=== PATIENT | male | born 1955 | race Caucasian/White ===

== ENCOUNTER → 2017-01-24 | Outpatient (CLI) | payer MEDICARE, OTHER | LOC: MRI 12:01 | DX: M51.37 Other intervertebral disc degeneration, lumbosacral region (principal); M51.36 Other intervertebral disc degeneration, lumbar region; M48.06 Spinal stenosis, lumbar region; M48.07 Spinal stenosis, lumbosacral region; M43.16 Spondylolisthesis, lumbar region; M51.26 Other intervertebral disc displacement, lumbar region | CPT/HCPCS: 72148 ==

== ENCOUNTER 2017-02-13 13:23 | Emergency (ER) | payer MEDICARE | END 2017-02-13 15:00 | disposition left against medical advice (07) | LOC: ER1 13:23 | DX: R07.9 Chest pain, unspecified (principal); Z53.21 Procedure and treatment not carried out due to patient leaving prior to being seen by health care provider | CPT/HCPCS: 93005 ==

== ENCOUNTER → 2021-03-19 | Outpatient (CLI) | payer MEDICARE, SELFPAY ==
[~2021-03-19] MED LIST: ASPIRIN EC81 MG PO; CELEXA40 MG PO; DESYREL 50 MG T50 MG PO; ISORDIL TAB 3030 MG PO; PROSCAR 5 MG TAB5 MG PO; SYNTHROID25 MCG PO; ZESTRIL10 MG PO; ZOCOR20 MG PO
== END ==
LOC: RAD 09:29
DX: M79.641 Pain in right hand (principal); M79.642 Pain in left hand; M19.042 Primary osteoarthritis, left hand; M19.041 Primary osteoarthritis, right hand; M19.032 Primary osteoarthritis, left wrist; M19.031 Primary osteoarthritis, right wrist
CPT/HCPCS: 73100; 73120

== ENCOUNTER → 2021-04-04 | Outpatient (CLI) | payer MEDICARE, SELFPAY | LOC: KOH-I 14:36 | DX: M79.642 Pain in left hand (principal); M25.532 Pain in left wrist | CPT/HCPCS: 73221 ==

== ENCOUNTER → 2021-07-19 | Outpatient (CLI) | payer MEDICARE | LOC: EXRD 11:35 | DX: M25.511 Pain in right shoulder (principal) | CPT/HCPCS: 73030 ==

== ENCOUNTER 2021-10-20 13:47 | Observation (INO) | payer MEDICARE, OTHER ==
[~2021-10-20] VITALS: Ht 172.7 cm; Wt 88.5 kg
[2021-10-20 14:49] LABS: HEMOGLOBIN 15.7 gm/dl (14.0-17.5); RED BLOOD COUNT 5.1 M/UL (4.20-5.50); WHITE BLOOD COUNT 4.6 K/UL (4.5-11.0)
[2021-10-20 15:08] LABS: BUN/CREATININE RATIO 25 (0-10)
[2021-10-20] MEDS ORDERED: ROPINIROLE HCL0.5 MG PO (18:48)
[2021-10-20] MEDS ORDERED: NAPROXEN500 MG PO (18:48)
[2021-10-20] MEDS ORDERED: PROAIR HFA8.5 GM INH (18:49)
[2021-10-20] MEDS ORDERED: VITAMIN B-121000 MCG PO (18:49)
[2021-10-20] MEDS ORDERED: MECLIZINE HCL25 MG PO (18:49)
== END 2021-10-21 15:00 | disposition home or self-care (01) ==
LOC: ER1 13:47 → CDU 17:42 → M/S 17:42
PROVIDERS: Nurse Practitioner; ADMIT Internal Medicine
DX: R07.89 Other chest pain (principal); U07.1 COVID-19; M19.09 Primary osteoarthritis, other specified site; I10 Essential (primary) hypertension; Z98.61 Coronary angioplasty status; Z82.49 Family history of ischemic heart disease and other diseases of the circulatory system
CPT/HCPCS: ECHO; 0240U; 36415; 71045; 80053; 81001; 82550; 82553; 83735; 83874; 84484; 85025; 93005; 93306; 96372; 99285; G0378; J1650